=== PATIENT | female | born 1970 | race Two or more races ===

== ENCOUNTER 2020-06-16 09:55 | Outpatient (CLI) | payer OTHER | END 2020-06-16 10:06 | disposition home or self-care (01) | LOC: TOM 09:55 | DX: R31.21 Asymptomatic microscopic hematuria (principal) ==

== ENCOUNTER → 2020-07-20 12:37 | Outpatient (CLI) | payer OTHER | END | disposition home or self-care (01) | LOC: LAB 12:37 | PROVIDERS: ATTEND Internal Medicine Hematology & Oncology | DX: D58.0 Hereditary spherocytosis (principal); R79.89 Other specified abnormal findings of blood chemistry; I10 Essential (primary) hypertension; R74.02 Elevation of levels of lactic acid dehydrogenase [LDH]; K76.89 Other specified diseases of liver; D50.8 Other iron deficiency anemias; B17.8 Other specified acute viral hepatitis; Z11.59 Encounter for screening for other viral diseases; B27.89 Other infectious mononucleosis with other complication; D68.8 Other specified coagulation defects; E56.1 Deficiency of vitamin K; D72.818 Other decreased white blood cell count; E78.2 Mixed hyperlipidemia ==

== ENCOUNTER 2021-01-04 09:35 | Outpatient (CLI) | payer OTHER | END 2021-01-04 15:00 | disposition home or self-care (01) | LOC: LAB 09:35 | PROVIDERS: ATTEND Internal Medicine Hematology & Oncology | DX: I10 Essential (primary) hypertension (principal); E78.2 Mixed hyperlipidemia; D50.8 Other iron deficiency anemias; R79.9 Abnormal finding of blood chemistry, unspecified; R74.02 Elevation of levels of lactic acid dehydrogenase [LDH]; K76.89 Other specified diseases of liver; D63.8 Anemia in other chronic diseases classified elsewhere; E03.8 Other specified hypothyroidism; E06.3 Autoimmune thyroiditis; D72.818 Other decreased white blood cell count ==

== ENCOUNTER 2021-08-10 09:54 | Outpatient (CLI) | payer OTHER | END 2021-08-10 10:06 | disposition home or self-care (01) | LOC: LAB 09:54 | PROVIDERS: ATTEND Internal Medicine Hematology & Oncology | DX: D72.818 Other decreased white blood cell count (principal); D51.1 Vitamin B12 deficiency anemia due to selective vitamin B12 malabsorption with proteinuria; D51.0 Vitamin B12 deficiency anemia due to intrinsic factor deficiency; E78.2 Mixed hyperlipidemia; D50.8 Other iron deficiency anemias; I10 Essential (primary) hypertension; R74.02 Elevation of levels of lactic acid dehydrogenase [LDH]; K76.89 Other specified diseases of liver; R79.9 Abnormal finding of blood chemistry, unspecified ==

== ENCOUNTER 2022-03-28 09:32 | Outpatient (CLI) | payer OTHER | END 2022-03-28 09:48 | disposition home or self-care (01) | LOC: LAB 09:32 | PROVIDERS: ATTEND Internal Medicine Hematology & Oncology | DX: D50.8 Other iron deficiency anemias (principal); R79.9 Abnormal finding of blood chemistry, unspecified; I10 Essential (primary) hypertension; R74.02 Elevation of levels of lactic acid dehydrogenase [LDH]; K76.89 Other specified diseases of liver; E55.9 Vitamin D deficiency, unspecified; D51.1 Vitamin B12 deficiency anemia due to selective vitamin B12 malabsorption with proteinuria; D51.0 Vitamin B12 deficiency anemia due to intrinsic factor deficiency; E03.8 Other specified hypothyroidism; R97.0 Elevated carcinoembryonic antigen [CEA]; R97.8 Other abnormal tumor markers; D72.818 Other decreased white blood cell count; E78.2 Mixed hyperlipidemia; B96.81 Helicobacter pylori [H. pylori] as the cause of diseases classified elsewhere; D64.9 Anemia, unspecified; E16.2 Hypoglycemia, unspecified; E03.9 Hypothyroidism, unspecified; N39.0 Urinary tract infection, site not specified; E55.0 Rickets, active; N91.1 Secondary amenorrhea; R00.2 Palpitations; I11.9 Hypertensive heart disease without heart failure; E11.9 Type 2 diabetes mellitus without complications ==

== ENCOUNTER 2024-03-21 08:51 | Outpatient (CLI) | payer OTHER ==
[2024-03-21 10:14] LABS: HEMATOCRIT 39.7 % (36.0-45.00); HEMOGLOBIN 13.6 g/dL (12.0-15.00); MEAN CORPUSCULAR HEMOGLOBIN 31.6 pg (27.00-32.0); MEAN CORPUSCULAR HGB CONC 34.3 g/dl (32.0-36.0); PLATELET COUNT 285 K/uL (150-450); RED BLOOD COUNT 4.32 M/uL (4.00-6.00)
[2024-03-21 11:18] LABS: % SATURACION 17.5 % (15-50); BILIRUBIN TOTAL 0.71 mg/dL (0.3-1.2); CALCIUM 8.8 mg/dL (8.5-10.1); CREATININE SERUM 0.64 mg/dL (0.55-1.02); GFR 96.34; GLOBULINA 3.1 G/DL (2.4-3.5); POTASSIUM 3.7 mEq/L (3.5-5.1); TOTAL PROTEIN 7.1 gm/dL (6.4-8.2)
[2024-03-21 11:41] LABS: FOLIC ACID 15.66 ng/ml (4.78-20); VITAMIN D3 25 HYDROXY 37.13 ng/ml (30-120)
[2024-03-21 14:51] LABS: MANUAL PLATELET COUNT 376
[2024-03-21 14:52] LABS: PLATELET ESTIMATE NORMAL (NORMAL)
[2024-03-22 06:04] LABS: CA 125 10.5 U/mL (0.0-38.1); CA 15-3 19.7 U/mL (0.0-25.0)
[2024-03-22 18:04] LABS: ERYTHROPOIETIN 13.4 mIU/mL (2.6-18.5)
[2024-03-23 22:03] LABS: PARIETAL CELL ANTIBODIES 31.7 Units (0.0-20.0)
== END 2024-03-21 08:52 | disposition home or self-care (01) ==
LOC: LAB 08:51
PROVIDERS: ATTEND Internal Medicine Hematology & Oncology
DX: D72.818 Other decreased white blood cell count (principal); D51.1 Vitamin B12 deficiency anemia due to selective vitamin B12 malabsorption with proteinuria; D51.0 Vitamin B12 deficiency anemia due to intrinsic factor deficiency; E78.2 Mixed hyperlipidemia; B96.81 Helicobacter pylori [H. pylori] as the cause of diseases classified elsewhere; I10 Essential (primary) hypertension; R74.02 Elevation of levels of lactic acid dehydrogenase [LDH]; K76.89 Other specified diseases of liver; R79.9 Abnormal finding of blood chemistry, unspecified; E55.9 Vitamin D deficiency, unspecified; D50.8 Other iron deficiency anemias; R97.8 Other abnormal tumor markers